=== PATIENT | male | born 1945 | race Caucasian/White ===

== ENCOUNTER 2016-06-15 12:59 | Emergency (ER) | payer MEDICARE, BC ==
[2016-06-15 13:44] VITALS: RESP 18
--- NOTE | 2016-06-15 15:13 | ED ---
General Adult HPI - General Chief complaint: Fall Stated complaint: Fall from 6ft Time Seen by Provider: 06/15/16 14:59 Source: patient, RN notes reviewed Mode of arrival: wheelchair Limitations: no limitations - History of Present Illness Initial comments: Patient is 71-year-old male who presents emergency room today with a chief complaint of a fall that occurred approximately 5 hours ago. Patient states that he was up at a farm in the [facility] [facility] point else he came back at him and he fell landing directly on top of his head. He states he was no loss conscious. He does not take any blood thinners. Does admit to mild headache. He states he was able to get himself up and climb back down out of a barn. Patient admits that he did take some ibuprofen before he came to the emergency room headache is slightly better but isn't having increased neck pain and upper back pain. He does admit that hurts when he swallows. He feels like a lump in his throat on the left side. He denies any other complaints or symptoms at this time. Patient denies any recent fever, chills, shortness of breath, chest pain, back pain, abdominal pain, nausea or vomiting, numbness or tingling, dysuria or hematuria, constipation or diarrhea, headaches or visual changes, or any other complaints. - Related Data Home Medications Medication Instructions Recorded Confirmed Aspirin [Adult Low Dose Aspirin EC] 81 mg PO HS 06/15/16 06/15/16 Citalopram Hydrobromide [CeleXA] 20 mg PO QAM 06/15/16 06/15/16 Citalopram Hydrobromide [CeleXA] 40 mg PO HS 06/15/16 06/15/16 Metoprolol Succinate [Toprol XL] 25 mg PO DAILY 06/15/16 06/15/16 Ramipril 10 mg PO DAILY 06/15/16 06/15/16 Simvastatin [Zocor] 40 mg PO Q48H 06/15/16 06/15/16 Tamsulosin [Flomax] 0.4 mg PO DAILY 06/15/16 06/15/16 metFORMIN HCL [Glucophage] 500 mg PO BID 06/15/16 06/15/16 Allergies Allergy/AdvReac Type Severity Reaction Status Date / Time No Known Allergies Allergy Unverified 06/15/16 15:13 Review of Systems ROS Statement: Those systems with pertinent positive or pertinent negative responses have been documented in the HPI. ROS Other: All systems not noted in ROS Statement are negative. Past Medical History Past Medical History: Diabetes Mellitus, Hypertension History of Any Multi-Drug Resistant Organisms: None Reported Past Surgical History: Coronary Bypass/CABG Past Psychological History: No Psychological Hx Reported Smoking Status: Never smoker Past Alcohol Use History: None Reported Past Drug Use History: None Reported General Exam - General Exam Comments Initial Comments: General: The patient is awake and alert, in no distress, and does not appear acutely ill. Currently in cervical collar. Eye: Pupils are equal, round and reactive to light, extra-ocular movements are intact. No nystagmus. There is normal conjunctiva bilaterally. No signs of icterus. Ears, nose, mouth and throat: There are moist mucous membranes and no oral lesions. Neck: The neck is supple, there is no tenderness or JVD. Cardiovascular: There is a regular rate and rhythm. No murmur, rub or gallop is appreciated. Respiratory: Lungs are clear to auscultation, respirations are non-labored, breath sounds are equal. No wheezes, stridor, rales, or rhonchi. Gastrointestinal: Soft, non-distended, non-tender abdomen without masses or organomegaly noted. There is no rebound or guarding present. No CVA tenderness. Bowel sounds are unremarkable. Musculoskeletal: No step-offs forms appreciated cervical, thoracic, lumbar spine. No tenderness down the lumbar. Mild tenderness beginning at C1-C2 cervical spine. Patient's normal appearance of thoracic spine. Mild tenderness from T2 to T4. Strength 5/5. Sensation intact. Pulses equal bilaterally 2+. Neurological: A&O x 3. CN II-XII intact, There are no obvious motor or sensory deficits. Coordination appears grossly intact. Speech is normal. Skin: Skin is warm and dry and no rashes or lesions are noted. Psychiatric: Cooperative, appropriate mood & affect, normal judgment. Limitations: no limitations Course Vital Signs 06/15/16 06/15/16 06/15/16 13:40 15:42 17:28 Temperature 99.0 F 98.9 F Pulse Rate 66 74 75 Respiratory 18 18 18 Rate Blood Pressure 161/71 122/59 118/58 O2 Sat by Pulse 96 94 L 94 L Oximetry - Reevaluation(s) Reevaluation #1: 06/15/16 16:[address] report was reviewed. Myself nor attending physician Dr. Bond received phone call. CT report does show a C1 left mass fracture. Patient has remained in cervical collar. Patient x-rays were changed to CT of the thoracic spine with 1 view chest. Patient updated of these results. Currently resting comfortably in stretcher. 06/15/16 18:[address] of thoracic spine does reveal a T2 and T3 mild compression fracture. Results were discussed with the patient. Patient has remained in a flat position with cervical collar in place. Case was discussed with attending physician Dr. Bond who did discuss case with [facility] accepting physician Dr. Gonzalez. Patient will be transferred by EMS. Patient and family aware the plan. Medical Decision Making - Lab Data Result diagrams: 06/15/16 16:42 06/15/16 16:42 Lab Results 06/15/16 06/15/16 06/15/16 Range/Units 16:23 16:42 16:42 WBC 14.0 H (3.8-10.6) k/uL RBC 5.33 (4.30-5.90) m/uL Hgb 16.4 (13.0-17.5) gm/dL Hct 46.9 (39.0-53.0) % MCV 88.0 (80.0-100.0) fL MCH 30.8 (25.0-35.0) pg MCHC 35.0 (31.0-37.0) g/dL RDW 12.4 (11.5-15.5) % Plt Count 227 (150-450) k/uL Neutrophils % 86 % Lymphocytes % 6 % Monocytes % 5 % Eosinophils % 1 % Basophils % 0 % Neutrophils # 12.1 H (1.3-7.7) k/uL Lymphocytes # 0.9 L (1.0-4.8) k/uL Monocytes # 0.7 (0-1.0) k/uL Eosinophils # 0.2 (0-0.7) k/uL Basophils # 0.1 (0-0.2) k/uL Sodium 141 (137-145) mmol/L Potassium 4.2 (3.5-5.1) mmol/L Chloride 103 (98-107) mmol/L Carbon Dioxide 26 (22-30) mmol/L Anion Gap 12 mmol/L BUN 15 (9-20) mg/dL Creatinine 0.99 (0.66-1.25) mg/dL Est GFR (MDRD) Af Amer >60 (>60 ml/min/1.73 sqM) Est GFR (MDRD) Non-Af >60 (>60 ml/min/1.73 sqM) Glucose 95 (74-99) mg/dL POC Glucose (mg/dL) 92 (75-99) mg/dL POC Glu Travel Pta ID Dina Swartz Calcium 9.7 (8.4-10.2) mg/dL Total Bilirubin 0.7 (0.2-1.3) mg/dL AST 44 (17-59) U/L ALT 42 (21-72) U/L Alkaline Phosphatase 65 (38-126) U/L Total Protein 6.9 (6.3-8.2) g/dL Albumin 4.6 (3.5-5.0) g/dL Disposition Clinical Impression: C1 cervical fracture, Compression fx, thoracic spine Disposition: OTHER INSTITUTION NOT DEFINED Condition: Stable Time of Disposition: 18:11 (Transferred by EMS to [facility]) - Out of Hospital Transfer - Req. Specs Out of Hospital Transfer - Requested Specifics: Other Emergency Center ( [facility])
--- NOTE | 2016-06-15 15:56 | CT ---
EXAMINATION TYPE: CT brain jameyine wo con DATE OF EXAM: 06/15/2016 3:44 PM COMPARISON: NONE HISTORY: Fell 6ft today. C/O neck pain. CT DLP: 1712.7 mGycm Automated exposure control for dose reduction was used. TECHNIQUE: CT scan of the head and cervical spine are performed without contrast. FINDINGS: There is no acute intracranial hemorrhage, mass effect, or midline shift identified. The ventricles and sulci are within normal limits in size. The globes are intact and the visualized sin uses are clear. Cervical spine: There is a fracture through the left lateral mass of C1. There is multilevel degenerative disc diseas e and facet arthropathy. Remaining osseous structures are intact. Odontoid intact. Evaluation the spi nal canal limited by noncontrast technique and artifact. Atherosclerotic change of the carotid arteries. Lung apices clear. Sternotomy wire noted. Changes of chronic sinusitis noted. IMPRESSION: 1. There is acute fracture lateral mass C1 on the left with mild displacement. Report called to ER ph ysician. 2. No acute intracranial hemorrhage, mass effect, or midline shift is seen. 3. Hypodensity within the basal ganglia is noted compatible with an age indeterminate area of ischemi a. This could be subacute correlate clinically.
[2016-06-15] MEDS ORDERED: HYDROmorphone 1 MG/ML 1 ML SYRINGE IVP STA ×2 (16:19→18:36)
[2016-06-15] MEDS ORDERED: ONDANSETRON 4 MG/2 ML VIAL IVP STA (16:19)
[2016-06-15 16:26] LABS: Glucose,Whole Blood 92 mg/dL (75-99)
[2016-06-15 16:54] LABS: Basophils # (A) 0.1 k/uL (0-0.2); Basophils % (A) 0 %; CH 30.4; CHCM 34.7; Eosinophils # (A) 0.2 k/uL (0-0.7); Eosinophils % (A) 1 %; HCT 46.9 % (39.0-53.0); HDW 2.63; HGB 16.4 gm/dL (13.0-17.5); Luc # (Auto) 0.16; Luc % (Auto) 1; Lymphocytes # (A) 0.9 k/uL (1.0-4.8); Lymphocytes % (A) 6 %; MCH 30.8 pg (25.0-35.0); Mean Platelet Volume 7.7; Monocytes # (A) 0.7 k/uL (0-1.0); Monocytes % (A) 5 %; Neutrophils # (A) 12.1 k/uL (1.3-7.7); Neutrophils % (A) 86 %; RBC 5.33 m/uL (4.30-5.90); RDW 12.4 % (11.5-15.5); WBC (Perox) 14.19
[2016-06-15 17:06] LABS: ALT 42 U/L (21-72); AST 44 U/L (17-59); Alkaline Phosphatase 65 U/L (38-126); Anion Gap 12 mmol/L; Blood Urea Nitrogen 15 mg/dL (9-20); Calcium 9.7 mg/dL (8.4-10.2); Carbon Dioxide 26 mmol/L (22-30); Chloride 103 mmol/L (98-107); Glucose 95 mg/dL (74-99); Non-African American GFR(MDRD) >60 (>60 ml/min/1.73 sqM); Potassium 4.2 mmol/L (3.5-5.1); Sodium 141 mmol/L (137-145); Total Bilirubin 0.7 mg/dL (0.2-1.3); Total Protein 6.9 g/dL (6.3-8.2)
--- NOTE | 2016-06-15 17:31 | CT ---
EXAMINATION TYPE: CT thoracic spine wo con DATE OF EXAM: 06/15/2016 5:20 PM COMPARISON: NONE HISTORY: Pt fell 6ft today. c/o back pain. CT DLP: 1723 mGycm Automated exposure control for dose reduction was used. FINDINGS: Exam is limited slightly by the patient size. There appears to be chip fractures of the anterior supe rior endplates of T3 and T2 vertebral bodies with 5% anterior wedging. There is no paraspinal mass. P osterior elements are intact. There is a triangular-shaped 5 mm fragment of the T2 vertebral body. There is mild hypertrophic spurring anteriorly in the lower thoracic spine. IMPRESSION: ACUTE MILD COMPRESSION FRACTURES OF T2 AND T3 VERTEBRAL BODIES. LIMITED EXAM.
--- NOTE | 2016-06-15 17:37 | XR ---
EXAMINATION TYPE: XR chest 1V portable DATE OF EXAM: 06/15/2016 5:30 PM COMPARISON: 08/12/2009 HISTORY: Fell from a height. Pain. TECHNIQUE: Single frontal view of the chest is obtained. FINDINGS: There is no heart failure nor confluent pneumonic infiltrate. Heart size is normal. There are no hilar masses. There are sternal wires. Bony thorax appears intact. There are pins from right s [facility] surgery. IMPRESSION: No active cardiopulmonary disease. There is clearing of the patchy atelectasis and pleur al reaction compared to old exam.
[2016-06-15 18:17] VITALS: BP 125/66; PULSE 72; TEMP 98.6
== END 2016-06-15 19:17 | disposition other institution (70) ==
LOC: EC 12:59
DX: S12.000A Unspecified displaced fracture of first cervical vertebra, initial encounter for closed fracture (principal); S22.029A Unspecified fracture of second thoracic vertebra, initial encounter for closed fracture; S22.039A Unspecified fracture of third thoracic vertebra, initial encounter for closed fracture; R51 Headache; E11.9 Type 2 diabetes mellitus without complications; I10 Essential (primary) hypertension; Z79.82 Long term (current) use of aspirin; Z79.84 Long term (current) use of oral hypoglycemic drugs; Z79.899 Other long term (current) drug therapy; W17.89XA Other fall from one level to another, initial encounter; Y92.79 Other farm location as the place of occurrence of the external cause
CPT/HCPCS: 36415; 80053; 85025; 71010; 72128; 72125; 70450; 99285; 96374; 96375; 96376; J2405; J1170

== ENCOUNTER → 2016-07-24 | Outpatient (CLI) | payer MEDICARE, BC ==
--- NOTE | 2016-07-24 10:23 | XR ---
EXAMINATION TYPE: XR cervical spine limited DATE OF EXAM: 07/24/2016 10:12 AM TECHNIQUE: Frontal, lateral, open-mouth, and swimmer's view of the cervical spine are acquired. HISTORY: S12.9XXA cervical fx Follow up study after fall injury in May with fracture COMPARISON: CT cervical spine June 15, 2016 FINDINGS: The cervical spine is visualized in its entirety from C1 thru the top of T1 level, it is s atisfactory in alignment without evidence of acute fracture or dislocation. The pre-vertebral soft t issue appears within normal limits. The C1-C2 articulation is within normal limits on the open mouth view. Vertebral body heights and disc space heights are fairly well-maintained. There is mild multilevel an terior spurring redemonstrated. Sternal wires and mediastinal clips are partially imaged and overlyin g soft tissue. Mild to moderate vascular calcification bilateral carotid bulb level is redemonstrated bilaterally. IMPRESSION: Alignment C1-C2 level at level of prior fracture is satisfactory and stable.
== END | disposition home or self-care (01) ==
LOC: RADXRMAIN 09:40
PROVIDERS: ATTEND Neurological Surgery
DX: S12.9XXD Fracture of neck, unspecified, subsequent encounter (principal); X58.XXXD Exposure to other specified factors, subsequent encounter
CPT/HCPCS: 72040

== ENCOUNTER 2017-04-28 06:45 | Day surgery (SDC) | payer MEDICARE, BC ==
[2017-04-26 09:42] VITALS: BMI 27.9
[~2017-04-28 06:45] MED LIST: LACTATED RINGERS 1,000 ML IV SCH
[2017-04-28 07:10] VITALS: TEMP 98.2
[2017-04-28 07:15] LABS: Glucose,Whole Blood 80 mg/dL (75-99)
[2017-04-28] MEDS ORDERED: PROPOFOL 10 MG/ML 20 ML VIAL IV ONE (07:30)
[2017-04-28] MEDS ORDERED: LIDOCAINE 1% INJ 10MG/ML (20 ML MDV) ONE (07:30)
--- NOTE | 2017-04-28 08:05 | P.PCN ---
Date of Procedure: 04/28/17 Procedure(s) Performed: BRIEF HISTORY: Patient is a 72-year-old pleasant white male, scheduled for an elective colonoscopy as a part of history of colon polyps and family history of colon cancer. His mother was diagnosed with colon cancer at age 59. PROCEDURE PERFORMED: Colonoscopy. PREOPERATIVE DIAGNOSIS: History of colon polyps/family history of colon cancer. IV sedation per Anesthesia. PROCEDURE: After informed consent was obtained, the patient, was brought into the endoscopy unit. IV sedation was administered by Anesthesia under continuous monitoring. Digital rectal examination was normal. Initially the Olympus CF- 160 flexible video colonoscope was then inserted in the rectum, gradually advanced into the cecum without any difficulty. Careful examination was performed as the scope was gradually being withdrawn. Ileocecal valve and the appendiceal orifice were visualized and appeared normal. Prep was excellent. Mucosa of the cecum, ascending colon, transverse colon, descending colon, sigmoid colon, and rectum appeared normal. Scattered sigmoid diverticula seen. Retroflexion was performed in the rectum and no lesions were seen. The patient tolerated the procedure well. IMPRESSION: Normal-appearing colon from rectum to cecum with no evidence of colorectal neoplasia. Scattered sigmoidal reticulosis. RECOMMENDATIONS: Findings of this examination were discussed with the patient as well as his family. He was advised to have a repeat screening colonoscopy in 5 years because of the family history of colon cancer.
[2017-04-28 08:31] VITALS: BP 115/69; PULSE 57; RESP 18
== END 2017-04-28 09:00 | disposition home or self-care (01) ==
LOC: ORWHC2ENDO 06:45
PROVIDERS: ATTEND Internal Medicine Gastroenterology
DX: Z12.11 Encounter for screening for malignant neoplasm of colon (principal); K57.30 Diverticulosis of large intestine without perforation or abscess without bleeding; Z86.010 Personal history of colon polyps; Z80.0 Family history of malignant neoplasm of digestive organs; I10 Essential (primary) hypertension; E78.5 Hyperlipidemia, unspecified; I25.10 Atherosclerotic heart disease of native coronary artery without angina pectoris; E11.9 Type 2 diabetes mellitus without complications; N40.0 Benign prostatic hyperplasia without lower urinary tract symptoms; Z95.1 Presence of aortocoronary bypass graft; F17.220 Nicotine dependence, chewing tobacco, uncomplicated; Z79.84 Long term (current) use of oral hypoglycemic drugs; Z79.82 Long term (current) use of aspirin; Z79.899 Other long term (current) drug therapy
CPT/HCPCS: J2001; J2704; G0105

== ENCOUNTER 2018-04-30 16:37 | Emergency (ER) | payer MEDICARE, BC ==
[2018-04-30 16:52] LABS: Glucose,Whole Blood 165 mg/dL (75-99)
[2018-04-30] MEDS ORDERED: SODIUM CHLORIDE 0.9% 1,000 ML IV STA ×2 (17:22)
[2018-04-30] MEDS ORDERED: ACETAMINOPHEN TAB 500 MG TAB PO STA (17:22)
--- NOTE | 2018-04-30 17:28 | ED ---
General Adult HPI - General Chief complaint: Neuro Symptoms/Deficit Stated complaint: DIZZINESS, CHILLS Time Seen by Provider: 04/30/18 16:49 Source: patient, family, RN notes reviewed Mode of arrival: ambulatory Limitations: no limitations - History of Present Illness Initial comments: Patient is a pleasant 73-year-old male presenting to the emergency Department with complaints of tremors. Symptoms started yesterday. Patient did seem somewhat confused in route. Confusion has seemed to resolved. No isolated area of weakness. Patient feels fatigued. Patient does admit that his mouth feels dry. Patient has been eating and drinking. Patient was working outside in the cold for several hours 2 days ago and questions if that could've services symptoms. No cough or dyspnea. No abdominal pain. No dysuria. No rash. Patient is unclear if he could have a fever or not. - Related Data Home Medications Medication Instructions Recorded Confirmed Aspirin [Adult Low Dose Aspirin EC] 81 mg PO HS 06/15/16 04/30/18 Metoprolol Succinate [Toprol XL] 25 mg PO DAILY 06/15/16 04/30/18 Ramipril 10 mg PO DAILY 06/15/16 04/30/18 Simvastatin [Zocor] 40 mg PO Q48H 06/15/16 04/30/18 Tamsulosin [Flomax] 0.4 mg PO DAILY 06/15/16 04/30/18 metFORMIN HCL [Glucophage] 500 mg PO BID 06/15/16 04/30/18 Citalopram Hydrobromide [CeleXA] 40 mg PO HS 04/30/18 04/30/18 Cyanocobalamin (Vitamin B-12) 1,000 mcg PO DAILY 04/30/18 04/30/18 [Vitamin B-12] Folic Acid 1 mg PO DAILY 04/30/18 04/30/18 Allergies Allergy/AdvReac Type Severity Reaction Status Date / Time No Known Allergies Allergy Verified 04/30/18 17:29 Review of Systems ROS Statement: Those systems with pertinent positive or pertinent negative responses have been documented in the HPI. ROS Other: All systems not noted in ROS Statement are negative. Constitutional: Reports: as per HPI Eyes: Denies: eye pain ENT: Denies: ear pain Respiratory: Denies: cough, dyspnea Endocrine: Reports: fatigue Gastrointestinal: Reports: vomiting (Patient did have an episode 2 or vomiting) . Denies: abdominal pain, nausea Genitourinary: Denies: dysuria, hematuria Musculoskeletal: Denies: back pain Skin: Denies: rash Neurological: Reports: as per HPI. Denies: headache Past Medical History Past Medical History: Diabetes Mellitus, Hypertension, Prostate Disorder Additional Past Medical History / Comment(s): FX BACK AND NECK 05/2016 History of Any Multi-Drug Resistant Organisms: None Reported Past Surgical History: Coronary Bypass/CABG, Orthopedic Surgery Additional Past Surgical History / Comment(s): RT SHOULDER SX. COLONOSCOPY Past Anesthesia/Blood Transfusion Reactions: No Reported Reaction Past Psychological History: Depression Smoking Status: Former smoker Past Alcohol Use History: None Reported Past Drug Use History: None Reported - Past Family History Mother Family Medical History: Cancer Father Family Medical History: Cancer Sister(s) Family Medical History: Cancer General Exam Limitations: no limitations General appearance: alert, in no apparent distress Head exam: Present: atraumatic Eye exam: Present: normal appearance, PERRL ENT exam: Present: mucous membranes dry Neck exam: Present: normal inspection. Absent: tenderness, meningismus Respiratory exam: Present: normal lung sounds bilaterally Cardiovascular Exam: Present: regular rate, normal rhythm GI/Abdominal exam: Present: soft. Absent: distended, tenderness, guarding, rebound, rigid Extremities exam: Present: normal inspection. Absent: pedal edema, calf tenderness Back exam: Present: normal inspection Neurological exam: Present: alert, oriented X3, CN II-XII intact. Absent: motor sensory deficit Expanded Neurological exam: Present: protecting the airway Patient oriented to: Present: person, place, time Speech: Present: fluid speech Cranial nerves: EOM's Intact: Normal, Facial Sensation: Normal Sensory exam: Upper Extremity Light Touch: Normal, Lower Extremity Light Touch: Normal Motor strength exam: RUE: 5, LUE: 5, RLE: 5, LLE: 5 Eye Response: (4) open spontaneously Motor Response: (6) obeys commands Verbal Response: (5) oriented Psychiatric exam: Present: normal affect, normal mood Skin exam: Present: normal color. Absent: rash Course Vital Signs 04/30/18 04/30/18 04/30/18 16:40 16:53 17:00 Temperature 98.7 F 103.1 F H Pulse Rate 71 91 Respiratory 18 20 Rate Blood Pressure 125/65 115/60 O2 Sat by Pulse 91 L 95 Oximetry 04/30/18 04/30/18 04/30/18 17:30 18:00 18:37 Temperature 101.3 F H Pulse Rate 89 90 Respiratory 18 20 Rate Blood Pressure 112/59 113/62 O2 Sat by Pulse 95 95 Oximetry 04/30/18 18:59 Temperature Pulse Rate 80 Respiratory 18 Rate Blood Pressure 94/53 O2 Sat by Pulse 95 Oximetry EKG Findings - EKG Comments: EKG Findings:: Normal sinus rhythm 93. TX 134. QRS 102. QT 412. QTC 512. Normal axis. Incomplete right bundle-branch block. No acute ST change. Medical Decision Making - Medical Decision Making Patient reevaluated and significantly improved. Patient requesting discharge home. Patient is able to get up and walk without any difficulty through the emergency department. Case was discussed in detail with Dr. Ford who is familiar with this patient and is comfortable with discharge home. Patient advised to return if symptoms worsen or change. is present. There are advised to follow-up in the next couple of days with Dr. Ford otherwise. - Lab Data Result diagrams: 04/30/18 17:07 04/30/18 17:07 Lab Results 04/30/18 04/30/18 04/30/18 Range/Units 16:50 16:59 17:07 WBC 12.3 H (3.8-10.6) k/uL RBC 5.05 (4.30-5.90) m/uL Hgb 14.6 (13.0-17.5) gm/dL Hct 43.9 (39.0-53.0) % MCV 87.0 (80.0-100.0) fL MCH 29.0 (25.0-35.0) pg MCHC 33.3 (31.0-37.0) g/dL RDW 12.6 (11.5-15.5) % Plt Count 193 (150-450) k/uL Neutrophils % 94 % Lymphocytes % 3 % Monocytes % 2 % Eosinophils % 1 % Basophils % 0 % Neutrophils # 11.6 H (1.3-7.7) k/uL Lymphocytes # 0.3 L (1.0-4.8) k/uL Monocytes # 0.3 (0-1.0) k/uL Eosinophils # 0.1 (0-0.7) k/uL Basophils # 0.0 (0-0.2) k/uL Sodium (137-145) mmol/L Potassium (3.5-5.1) mmol/L Chloride (98-107) mmol/L Carbon Dioxide (22-30) mmol/L Anion Gap mmol/L BUN (9-20) mg/dL Creatinine (0.66-1.25) mg/dL Est GFR (CKD-EPI)AfAm (>60 ml/min/1.73 sqM) Est GFR (CKD-EPI)NonAf (>60 ml/min/1.73 sqM) Glucose (74-99) mg/dL POC Glucose (mg/dL) 165 H (75-99) mg/dL POC Glu Senior Accounting Analyst ID Opal Jaramillo Plasma Lactic Acid Garret (0.7-2.0) mmol/L Calcium (8.4-10.2) mg/dL Total Bilirubin (0.2-1.3) mg/dL AST (17-59) U/L ALT (21-72) U/L Alkaline Phosphatase (38-126) U/L Total Protein (6.3-8.2) g/dL Albumin (3.5-5.0) g/dL Urine Color Urine Appearance (Clear) Urine pH (5.0-8.0) Ur Specific [place] (1.001-1.035) Urine Protein (Negative) Urine Glucose (UA) (Negative) Urine Ketones (Negative) Urine Blood (Negative) Urine Nitrite (Negative) Urine Bilirubin (Negative) Urine Urobilinogen (<2.0) mg/dL Ur Leukocyte Esterase (Negative) Urine RBC (0-5) /hpf Urine WBC (0-5) /hpf Ur Squamous Epith Cells (0-4) /hpf Urine Mucus (None) /hpf Influenza Type A RNA Not Detected (Not Detectd) Influenza Type B (PCR) Not Detected (Not Detectd) 04/30/18 04/30/18 04/30/18 Range/Units 17:07 17:07 17:26 WBC (3.8-10.6) k/uL RBC (4.30-5.90) m/uL Hgb (13.0-17.5) gm/dL Hct (39.0-53.0) % MCV (80.0-100.0) fL MCH (25.0-35.0) pg MCHC (31.0-37.0) g/dL RDW (11.5-15.5) % Plt Count (150-450) k/uL Neutrophils % % Lymphocytes % % Monocytes % % Eosinophils % % Basophils % % Neutrophils # (1.3-7.7) k/uL Lymphocytes # (1.0-4.8) k/uL Monocytes # (0-1.0) k/uL Eosinophils # (0-0.7) k/uL Basophils # (0-0.2) k/uL Sodium 135 L (137-145) mmol/L Potassium 3.9 (3.5-5.1) mmol/L Chloride 104 (98-107) mmol/L Carbon Dioxide 23 (22-30) mmol/L Anion Gap 8 mmol/L BUN 23 H (9-20) mg/dL Creatinine 1.06 (0.66-1.25) mg/dL Est GFR (CKD-EPI)AfAm 82 (>60 ml/min/1.73 sqM) Est GFR (CKD-EPI)NonAf 71 (>60 ml/min/1.73 sqM) Glucose 168 H (74-99) mg/dL POC Glucose (mg/dL) (75-99) mg/dL POC Glu Senior Accounting Analyst ID Plasma Lactic Acid Garret 2.3 H* (0.7-2.0) mmol/L Calcium 8.8 (8.4-10.2) mg/dL Total Bilirubin 1.0 (0.2-1.3) mg/dL AST 19 (17-59) U/L ALT 25 (21-72) U/L Alkaline Phosphatase 54 (38-126) U/L Total Protein 5.9 L (6.3-8.2) g/dL Albumin 3.8 (3.5-5.0) g/dL Urine Color Yellow Urine Appearance Clear (Clear) Urine pH 6.5 (5.0-8.0) Ur Specific [place] 1.021 (1.001-1.035) Urine Protein 1+ H (Negative) Urine Glucose (UA) Negative (Negative) Urine Ketones Trace H (Negative) Urine Blood Trace H (Negative) Urine Nitrite Negative (Negative) Urine Bilirubin Negative (Negative) Urine Urobilinogen <2.0 (<2.0) mg/dL Ur Leukocyte Esterase Negative (Negative) Urine RBC 3 (0-5) /hpf Urine WBC 2 (0-5) /hpf Ur Squamous Epith Cells <1 (0-4) /hpf Urine Mucus Rare H (None) /hpf Influenza Type A RNA (Not Detectd) Influenza Type B (PCR) (Not Detectd) - Radiology Data Radiology results: report reviewed (Computed tomography scan the brain shows atrophy and chronic small vessel ischemic changes redemonstrated.), image reviewed (Chest x-ray shows suspected mild interstitial edema. No definitive focal infiltrate.) Disposition Clinical Impression: Febrile illness Disposition: HOME SELF-CARE Condition: Stable Instructions (If sedation given, give patient instructions): Fever in Adults ( ED) Additional Instructions: Please follow-up with primary care physician in the beginning of the week, Dr. Ford. [id number]-[id number] Tylenol or Motrin as needed for fever. Return for cough, difficulty breathing, pain, uncontrolled fevers, worsening or changing symptoms or other concerns. Is patient prescribed a controlled substance at d/c from ED?: No Referrals: Tripp Ford MD [Primary Care Provider] - 1-2 days Time of Disposition: 19:42
[2018-04-30 17:31] LABS: Basophils % (A) 0 %; Eosinophils # (A) 0.1 k/uL (0-0.7); Eosinophils % (A) 1 %; HCT 43.9 % (39.0-53.0); HGB 14.6 gm/dL (13.0-17.5); Lymphocytes # (A) 0.3 k/uL (1.0-4.8); Lymphocytes % (A) 3 %; MCHC 33.3 g/dL (31.0-37.0); Monocytes # (A) 0.3 k/uL (0-1.0); Monocytes % (A) 2 %; Neutrophils # (A) 11.6 k/uL (1.3-7.7); Neutrophils % (A) 94 %; Platelet Count 193 k/uL (150-450); RBC 5.05 m/uL (4.30-5.90); RDW 12.6 % (11.5-15.5); WBC 12.3 k/uL (3.8-10.6)
[2018-04-30 17:41] LABS: Albumin 3.8 g/dL (3.5-5.0); Calcium 8.8 mg/dL (8.4-10.2); Potassium 3.9 mmol/L (3.5-5.1); Total Protein 5.9 g/dL (6.3-8.2)
--- NOTE | 2018-04-30 17:41 | XR ---
EXAMINATION TYPE: XR chest 2V DATE OF EXAM: 04/30/2018 COMPARISON: Prior chest x-ray June 15, 2016. HISTORY: Nausea and vomiting. Fever. TECHNIQUE: Frontal and lateral views of the chest are obtained. FINDINGS: Overlying sternal wires and mediastinal clips are present. There is redemonstration of low lung volumes with silhouetting of left heart border. There is suspected new mild central vascular con gestion. There is no focal air space opacity, pleural effusion, or pneumothorax seen. The cardiac si lhouette size is upper limits of normal. Metallic anchors right humeral head level are noted. IMPRESSION: Low lung volumes with suspected mild bilateral interstitial edema. No definitive new foc al infiltrate.
[2018-04-30 17:42] LABS: Appearance,Urine Clear (Clear); Bilirubin,Urine Negative (Negative); Blood,Urine Trace (Negative); Color,Urine Yellow; Glucose,Urine (UA) Negative (Negative); Ketones,Urine Trace (Negative); Leukocyte Esterase,Urine Negative (Negative); Mucus,Urine Rare /hpf; Nitrite,Urine Negative (Negative); PH, Urine 6.5 (5.0-8.0); Protein,Urine 1+ (Negative); RBC,Urine 3 /hpf (0-5); Specific Gravity,Urine 1.021 (1.001-1.035); Squamous Epithelial Cell,Urine <1 /hpf (0-4); Urobilinogen,Urine <2.0 mg/dL (<2.0); WBC,Urine 2 /hpf (0-5)
--- NOTE | 2018-04-30 17:50 | CT ---
EXAMINATION TYPE: CT brain wo con DATE OF EXAM: 04/30/2018 HISTORY: ams and weakness. CT DLP: 1137.4 mGycm. Automated Exposure Control for Dose Reduction was Utilized. TECHNIQUE: CT scan of the head is performed without contrast. COMPARISON: CT brain June 15, 2016. FINDINGS: There is no acute intracranial hemorrhage or midline shift identified. There is diffuse v entricular and sulcal prominence consistent with diffuse age-related cerebral atrophy. There is low- attenuation in the periventricular white matter consistent with chronic small vessel ischemic change. The globes are intact and the visualized sinuses are clear. Nasal septum remains deviated to righ t of midline. There is vascular calcification distal internal carotid and vertebral arteries bilatera lly. IMPRESSION: No acute intracranial hemorrhage or midline shift. There is mild to moderate diffuse ag e-related cerebral atrophy and chronic small vessel ischemic change redemonstrated without significan t change from prior CT.
[2018-04-30] MEDS ORDERED: IBUPROFEN 600 MG TAB PO STA (18:38)
[2018-04-30 19:51] VITALS: BP 95/56; PULSE 76; RESP 16; TEMP 98.9
== END 2018-04-30 19:51 | disposition home or self-care (01) ==
LOC: EC 16:37
DX: R50.9 Fever, unspecified (principal); R42 Dizziness and giddiness; R53.83 Other fatigue; R25.1 Tremor, unspecified; R68.2 Dry mouth, unspecified; E11.9 Type 2 diabetes mellitus without complications; I10 Essential (primary) hypertension; N42.9 Disorder of prostate, unspecified; F32.9 Major depressive disorder, single episode, unspecified; Z95.1 Presence of aortocoronary bypass graft; Z87.891 Personal history of nicotine dependence; Z79.82 Long term (current) use of aspirin; Z79.84 Long term (current) use of oral hypoglycemic drugs; Z79.899 Other long term (current) drug therapy
CPT/HCPCS: 36415; 70450; 71046; 80053; 81001; 83605; 85025; 87040; 87077; 87086; 87186; 87502; 93005; 96360; 99284

== ENCOUNTER → 2019-10-27 | Outpatient (CLI) | payer MEDICARE, BC ==
[2019-10-28 11:20] LABS: Free Kappa Lt Chain Qnt, Serum 0.04 mg/dL (0.33-1.94)
== END | disposition home or self-care (01) ==
LOC: LABWHC1 07:54
PROVIDERS: ATTEND Internal Medicine
DX: D80.1 Nonfamilial hypogammaglobulinemia (principal)
CPT/HCPCS: 36415; 83883; 86335

== ENCOUNTER → 2021-10-31 | Outpatient (CLI) | payer MEDICARE, BC ==
--- NOTE | 2021-10-31 09:06 | US ---
EXAMINATION TYPE: US abdomen complete DATE OF EXAM: 10/31/2021 COMPARISON: NONE CLINICAL HISTORY: R74.8 Elevated liver enzymes. elevated liver enzymes. Limited due to body habitus. TECHNIQUE: Multiple sonographic images of the abdomen are obtained. FINDINGS: EXAM MEASUREMENTS: Liver Length: 21 cm Gallbladder Wall: .2 cm CBD: .6 cm Spleen: 12 cm Right Kidney: 11.4 x 4.5 x 3.7 cm Left Kidney: 13.8 x 5.7 x 5.2 cm [employer] MATE NOTES: Pancreas: Obscured by bowel gas Liver: Increased attenuation Gallbladder: No stones seen Evidence for sonographic Mahmood's sign: No CBD: wnl Spleen: wnl Right Kidney: wnl Left Kidney: Cystic area seen lower pole 10.8 x 7.7 x 9.8 cm Upper IVC: limited due to bowel gas Abd Aorta: wnl Suboptimal evaluation of pancreas and additional images due to overlying bowel gas. No aneurysmal aneesh nge of visualized abdominal aorta. Visualized liver is markedly heterogeneously hyperechoic. Evaluati on for focal masses suboptimal due to the heterogeneity. No adjacent ascites. Gallbladder shows tevin l bowel shadowing gallstones. No biliary dilatation. No hydronephrosis evident bilaterally. There is large thin-walled cyst measuring near 11 cm on long axis from the lower pole left kidney. This is inc ompletely evaluated due to body habitus and size of lesion on ultrasound. Spleen is normal in size. IMPRESSION: Suboptimal study. Marked heterogeneous hyperechoic appearance of liver system with diffus e fatty infiltration and/or underlying hepatocellular disease.
== END | disposition home or self-care (01) ==
LOC: RADUSWWP 07:57
PROVIDERS: ATTEND Internal Medicine
DX: K76.0 Fatty (change of) liver, not elsewhere classified (principal); R74.8 Abnormal levels of other serum enzymes
CPT/HCPCS: 76700

== ENCOUNTER → 2022-10-29 | Outpatient (CLI) | payer MEDICARE, BC ==
[2022-10-29 12:09] LABS: African American GFR (CKD) >90 (>60 ml/min/1.73 sqM); Blood Urea Nitrogen 14 mg/dL (9-20); Non-African American GFR(CKD) 84 (>60 ml/min/1.73 sqM)
--- NOTE | 2022-10-29 12:55 | CT ---
EXAMINATION TYPE: CT brain wo/w con CT DLP: 2128.6 mGycm, Automated exposure control for dose reduction was used. DATE OF EXAM: 10/29/2022 12:41 PM COMPARISON: None available at time of dictation. 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 One or more CT dose reduction strategies were utilize d during this examination. Coronal and sagittal reformats reviewed. FINDINGS: Extra-axial spaces: No abnormal extra-axial fluid collections. Ventricular system: Within normal limits Cerebral parenchyma: Mild cerebral atrophy redemonstrated. No acute intraparenchymal hemorrhage or ma ss effect. The desai-white junction is well differentiated. Confluent regions of low-attenuation in t he periventricular white matter. Age-indeterminate lacunar injury to the anterior limb of the right i nternal capsule. No abnormal enhancement is seen after the administration of intravenous contrast. Cerebellum: Unremarkable. Mass effect: No evidence of midline shift. Intracranial vasculature: Atherosclerotic calcifications of the intracranial vessels. Soft tissues: Normal. Calvarium/osseous structures: No depressed skull fracture. Paranasal sinuses and mastoid air cells: Mild mucosal thickening of the ethmoid sinuses. And minimal mucosal thickening of the inferior bilateral maxillary sinuses. Visualized orbits: Bilateral aphakia IMPRESSION: 1. No acute intracranial hemorrhage. No abnormal contrast enhancement. 2. Age-indeterminate right basal ganglia lacunar injury, favored remote. This can be further evaluat ed with MRI brain as clinically indicated. 3. Nonspecific white matter changes likely relate to chronic small vessel ischemic disease.
== END | disposition home or self-care (01) ==
LOC: RADCTMAIN 11:20
PROVIDERS: ATTEND Family Medicine
DX: G31.84 Mild cognitive impairment of uncertain or unknown etiology (principal); R90.82 White matter disease, unspecified
CPT/HCPCS: 82565; 84520; 70470; 36415; Q9967

== ENCOUNTER → 2022-12-29 | Outpatient (CLI) | payer MEDICARE, BC ==
--- NOTE | 2023-01-02 12:02 | MR ---
EXAMINATION TYPE: MR brain wo/w con DATE OF EXAM: 12/29/2022 10:10 AM CLINICAL INDICATION:Male, 77 years old with history of G31.84 Mild cognitive Impairment; PHH, Mild co gnitive decline COMPARISON: 10/29/2022 TECHNIQUE: Multi planar, multi sequence imaging was performed through the brain including: T1, T2, In version recovery, susceptibility weighted imaging and gradient echo imaging and Diffusion weighted im aging. The patient was then given intravenous contrast and multi planar, T1 fat-saturation images wer e obtained. IV Contrast: 9 cc Gadavist FINDINGS: Cerebral atrophy and proportional dilation of ventricular systems. Diffusion-weighted imaging shows n o evidence of restricted diffusion to suggest acute/subacute infarct. Intracranial arterial flow void s are maintained. Midline structures show no abnormality. Scattered foci of high T2 signal intensity are seen within the periventricular white matter. Curvilinear gyriform blooming artifact in the medial aspect of the right frontal lobe. Additional imm ediately adjacent intraparenchymal or sulcus area of blooming artifact likely present measuring up to 7 mm. Microhemorrhage suggested in the medial right cerebellar hemisphere. After administration of gadolinium, no abnormal enhancement is seen. The bone marrow signal is within normal limits. Paranasal sinuses and mastoid air cells: Mild scattered paranasal sinus disease. Visualized orbits: Bilaterally aphakia. IMPRESSION: 1. No evidence of intracranial mass, acute/subacute infarct, or abnormal enhancement. 2. 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 There is an area that may be within a sulcus versus subcortical cavernoma measuring 7 mm. No abnormal postcontrast enhancement. Correlate with history of malignancy. 3. Nonspecific white matter changes, likely related to small vessel ischemic disease
== END | disposition home or self-care (01) ==
LOC: RADMRIMAIN 08:43
PROVIDERS: ATTEND Family Medicine
DX: G31.84 Mild cognitive impairment of uncertain or unknown etiology (principal); R90.82 White matter disease, unspecified
CPT/HCPCS: 70553; A9585

== ENCOUNTER → 2023-08-24 | Outpatient (CLI) | payer MEDICARE, BC ==
[2023-08-24 13:41] LABS: African American GFR (CKD) >90 (>60 ml/min/1.73 sqM); Blood Urea Nitrogen 12 mg/dL (9-20); Non-African American GFR(CKD) 84 (>60 ml/min/1.73 sqM)
--- NOTE | 2023-08-30 09:12 | CT ---
EXAMINATION TYPE: CT urogram wo/w con DATE OF EXAM: 08/24/2023 COMPARISON: INDICATION: bladder ca DLP: 4184.5 mGycm, Automated exposure control for dose reduction was used. CONTRAST: 100ml mL of Isovue 370. Study performed TECHNIQUE: Axial images were obtained from above the diaphragm to the pubic rami in the axial plane a t 5 mm thick sections. Reconstructed images are reviewed on the computer in the coronal plane. FINDINGS: Limited CT sections are obtained the lung bases. There is some compressive atelectasis along the pos terior right lung base. A dense calcification is in the posterior right lung sulcus.. Moderate coron javi artery calcification is present. CT ABDOMEN: Liver: Normal Spleen: Normal Pancreas: Normal Adrenal glands: The adrenal glands are normal. Gallbladder: There is a punctate calcification within the gallbladder. Kidneys: No masses are evident. No hydronephrosis is present. There is atelectasis on the posterior inferior left kidney measuring 9.3 cm. Anterior lateral left renal cyst measures 2.7 cm. There is a 1.0 cm cyst on the anterior medial left kidney Early and delayed images were obtained through the [facility] neys. Aorta: Vascular calcification is within the aorta. There is minimal fusiform prominence of the dista l abdominal aorta with an AP diameter of 2.8 cm. Inferior vena cava: Normal. CT PELVIS: Loops of bowel within the abdomen and pelvis are normal. There are loops of bowel which are incom pletely distended or lack oral contrast limiting their evaluation. Appendix: Normal as visualized. Urinary bladder: Some subtle asymmetric thickening along the left posterior lateral urinary bladder m ay be present. Bilateral ureteral jets are evident Genitourinary structures: Prostate is very prominent has some inferior impression on the urinary blad markell. Osseous structures: No suspicious lytic or sclerotic lesions. Three-D reconstructed images performed on a separate computer by the technologist are reviewed. Renal calyces infundibula and renal pelves are normal. Ureters follow a normal caliber course and contour to the urinary bladder on sequential images. IMPRESSION: 1. Mild asymmetric thickening of the posterolateral left urinary bladder 2. No suspicious renal or ureteral abnormality
== END | disposition home or self-care (01) ==
LOC: RADCTMAIN 12:57
PROVIDERS: ATTEND Urology
DX: N32.89 Other specified disorders of bladder (principal); C67.9 Malignant neoplasm of bladder, unspecified
CPT/HCPCS: 82565; 84520; 74178; 36415; 74400; Q9967

== ENCOUNTER → 2023-08-26 | Outpatient (CLI) | payer MEDICARE, BC ==
--- NOTE | 2023-08-26 19:26 | US ---
EXAMINATION TYPE: US liver DATE OF EXAM: 08/26/2023 COMPARISON: US 10/31/2021 CLINICAL INDICATION: Male, 78 years old with history of K74.60 UNSPECIFIED CIRRHOSIS OF LIVER; Cirrho sis. TECHNIQUE: Multiple sonographic images of the right upper quadrant are obtained. FINDINGS: EXAM MEASUREMENTS: Liver Length: 18.7 cm Gallbladder Wall: 0.26 cm CBD: Obscured Right Kidney: 11.7 x 5.6 x 5.1 cm [employer]OCIATE NOTES: Exam is limited due to overlying bowel gas. Pancreas: Tail is obscured. Liver: Appears enlarged and coarse with increased echogenicity and attenuation compatible with fatty infiltration. Gallbladder: Appears anechoic. Evidence for sonographic Mahmood's sign: No CBD: Obscured Right Kidney: No hydronephrosis or masses seen IMPRESSION: 1. Hepatomegaly with moderate fatty infiltration of the liver.
== END | disposition home or self-care (01) ==
LOC: RADUSWWP 08:25
PROVIDERS: ATTEND Internal Medicine Gastroenterology
DX: K74.60 Unspecified cirrhosis of liver (principal); R16.0 Hepatomegaly, not elsewhere classified; K76.0 Fatty (change of) liver, not elsewhere classified
CPT/HCPCS: 76705

== ENCOUNTER → 2024-04-20 | Outpatient (CLI) | payer MEDICARE, BC ==
[2024-04-20 15:56] LABS: Basophils # (A) 0.08 X 10*3/uL (0.00-0.10); Basophils % (A) 0.8 %; Eosinophils # (A) 0.22 X 10*3/uL (0.04-0.35); Eosinophils % (A) 2.3 %; HCT 45.6 % (39.6-50.0); HGB 15.3 g/dL (13.0-17.0); Lymphocytes # (A) 1.59 X 10*3/uL (0.90-5.00); Lymphocytes % (A) 16.4 %; MCH 29.9 pg (27.0-32.0); MCHC 33.6 g/dL (32.0-37.0); MCV 89.1 FL (80.0-97.0); Mean Platelet Volume 10.8 FL (9.5-12.2); Monocytes # (A) 1.01 X 10*3/uL (0.20-1.00); Monocytes % (A) 10.4 %; NRBC Per 100 WBC 0 X 10*3/uL (0.00-0.01); Neutrophils # (A) 6.78 X 10*3/uL (1.80-7.70); Neutrophils % (A) 69.7 %; Platelet Count 263 X 10*3/uL (140-440); RBC 5.12 X 10*6/uL (4.40-5.60); RDW 12.7 % (11.5-14.5); WBC 9.72 X 10*3/uL (4.50-10.00)
[2024-04-20 16:12] LABS: ALT 34 U/L (10-49); AST 46 U/L (14-35); Albumin 4.6 g/dL (3.8-4.9); Albumin/Globulin Ratio 2.56 Ratio (1.60-3.17); Alkaline Phosphatase 64 U/L (41-126); Blood Urea Nitrogen 10.7 mg/dL (9.0-27.0); Calcium 9.8 mg/dL (8.7-10.3); Carbon Dioxide 25.8 mmol/L (21.6-31.8); Chloride 105 mmol/L (96-109); Chol/HDL Ratio 4.08 Ratio; Globulin 1.8 g/dL (1.6-3.3); Glucose 145 mg/dL (70-110); Potassium 4.1 mmol/L (3.5-5.5); Sodium 144 mmol/L (135-145); Total Bilirubin 0.6 mg/dL (0.3-1.2); Total Protein 6.4 g/dL (6.2-8.2)
== END | disposition home or self-care (01) ==
LOC: LABWHC1 11:07
PROVIDERS: ATTEND Family Medicine
DX: I10 Essential (primary) hypertension (principal); E78.5 Hyperlipidemia, unspecified; E11.9 Type 2 diabetes mellitus without complications; G31.84 Mild cognitive impairment of uncertain or unknown etiology
CPT/HCPCS: 36415; 80053; 80061; 83036; 84443; 85025